=== PATIENT | male | born 1990 | race Caucasian/White ===

== ENCOUNTER 2017-03-16 21:14 | Emergency (ER) | payer BC, OTHER, MEDICAID | END 2017-03-16 21:30 | disposition home or self-care (01) | LOC: E/R 21:30 → FTE 21:14 | DX: S30.861A Insect bite (nonvenomous) of abdominal wall, initial encounter (principal); W57.XXXA Bitten or stung by nonvenomous insect and other nonvenomous arthropods, initial encounter; Y92.9 Unspecified place or not applicable | CPT/HCPCS: 99284 ==